=== PATIENT | female | born 1990 | race Caucasian/White ===

== ENCOUNTER 2016-06-15 18:03 | Emergency (ER) | payer OTHER, MEDICAID ==
[2016-06-15] MEDS ORDERED: IBUPROFEN 800 MG TABLET PO ONE (18:23)
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
[2016-06-15 20:32] VITALS: BP 137/79
== END 2016-06-15 20:31 | disposition home or self-care (01) ==
LOC: ER 18:03
DX: S16.1XXA Strain of muscle, fascia and tendon at neck level, initial encounter (principal); S39.012A Strain of muscle, fascia and tendon of lower back, initial encounter; V49.40XA Driver injured in collision with unspecified motor vehicles in traffic accident, initial encounter; F17.200 Nicotine dependence, unspecified, uncomplicated
CPT/HCPCS: 99283

== ENCOUNTER → 2017-08-17 | Outpatient (CLI) | payer SELFPAY ==
--- NOTE | 2017-08-17 14:43 | RADIOLOGY REPORT (SQ) ---
EXAM DESCRIPTION: U/S [id number] TRNABD 1GES W/ODOP COMPLETED DATE/TIME: 08/17/2017 2:24 pm REASON FOR STUDY: Z34.91 ENCNTR FOR SUPRVSN OF NORMAL PREG, UNSP, FIRST TRIMESTER Z34.91 ENCNTR FOR SUPRVSN OF NORMAL PREG, UNSP, FIRST TRIMES COMPARISON: None. TECHNIQUE: Transabdominal static and realtime grayscale images acquired of the pelvis. Additional se lected spectral and color Doppler images recorded. All images stored on PACs. bHCG: Not available LIMITATIONS: None. FINDINGS: FETUS: Living intrauterine . EGA: 7 weeks 6 days TWIN: 03/30/2018 FHR: 157 beats per minute. SUBCHORIONIC BLEED: No SIZE OF BLEED: Not applicable. UTERUS: No masses. No anomalies. CERVICAL LENGTH: 3.1 cm Closed. RIGHT ADNEXA: Normal ovary with normal vascular flow. No adnexal free fluid. No adnexal masses. LEFT ADNEXA: Left ovary was not visualized No adnexal free fluid. No adnexal masses. FREE FLUID: None. OTHER: No other significant finding. IMPRESSION: LIVING INTRAUTERINE . EGA 7 weeks 6 days Trimester of : First - 0 to 13 weeks. TECHNICAL DOCUMENTATION: JOB ID: [id number] [employer]- All Rights Reserved Reading location - IP/workstation name: [email or web address]
== END ==
LOC: RAD 13:43
PROVIDERS: ATTEND Nurse Practitioner Women's Health
DX: Z34.91 Encounter for supervision of normal pregnancy, unspecified, first trimester (principal)
CPT/HCPCS: 76801

== ENCOUNTER 2018-03-23 16:31 | Inpatient (IN) | payer MEDICAID ==
[2018-03-23] MEDS ORDERED: MEASLES,MUMPS&RUBELLA VACC/PF 0.5 ML VIAL SUBCUT PRN (16:38)
[2018-03-23] MEDS ORDERED: NA PHOS,M-B/NA PHOS,DI-BA (ADULT) 133 ML ENEMA PR PRN (16:38)
[2018-03-23] MEDS ORDERED: MAGNESIUM HYDROXIDE SUSP 30 ML UDCUP PO PRN (16:38)
[2018-03-23] MEDS ORDERED: PROMETHAZINE HCL 25 MG TABLET PO PRN (16:38)
[2018-03-23] MEDS ORDERED: DIPHENHYDRAMINE HCL 25 MG CAPSULE PO PRN (16:38)
[2018-03-23] MEDS ORDERED: PSEUDOEPHEDRINE HCL 30 MG TABLET PO PRN (16:38)
[2018-03-23] MEDS ORDERED: PROMETHAZINE HCL INJ 25 MG/1 ML VIAL IV PRN (16:38)
[2018-03-23] MEDS ORDERED: OXYTOCIN/NORMAL SALINE 20 UNIT/1,000 ML RTUINJ IV PRN (16:38)
[2018-03-23] MEDS ORDERED: ACETAMINOPHEN WITH CODEINE #3 TABLET PO PRN ×2 (16:38)
[2018-03-23] MEDS ORDERED: PROMETHAZINE HCL 25 MG SUPP.RECT PR PRN (16:38)
[2018-03-23] MEDS ORDERED: DIPH/PERTUSS(ACELL)/TETANUS VAC/PF 0.5 ML SYR (>=10YO) IM PRN (16:38)
[2018-03-23] MEDS ORDERED: BENZOCAINE/MENTHOL AEROSOL SPRAY 56 ML TOP PRN (16:38)
[2018-03-23] MEDS ORDERED: ZOLPIDEM TARTRATE 5 MG TABLET PO PRN (16:38)
[2018-03-23] MEDS ORDERED: DIBUCAINE 1% OINTMENT 28 GM TP PRN (16:38)
[2018-03-23] MEDS ORDERED: ACETAMINOPHEN 650 MG SUPP.RECT PR PRN (16:38)
[2018-03-23] MEDS ORDERED: GLYCERIN/WITCH HAZEL LEAF 1 EACH MED..PAD TP PRN (16:38)
[2018-03-23] MEDS ORDERED: OXYTOCIN 10 UNIT/ML VIAL ONE (16:42)
[2018-03-23] MEDS ORDERED: LIDOCAINE 1% INJ-PF (10 MG/ML) 30 ML SDV ONE (16:42)
[2018-03-23] MEDS ORDERED: MISOPROSTOL 0.2 MG TABLET ONE (16:42)
[2018-03-23] MEDS ORDERED: OXYTOCIN/NORMAL SALINE 20 UNIT/1,000 ML RTUINJ ONE (16:42)
--- NOTE | 2018-03-23 17:04 | Admission Physical ---
Datetime Report Generated by CPN: 03/23/2018 17:04 CURRENT ADMISSION Chief Complaint: Other Chief Complaint Other: precipitous delivery in car in route to hospital Indication for Induction: Not Applicable Admit Plan: Admit to Unit Admit Plan- Other: tobacco abuse hx PTD in 2015 on P17 this PHYSICAL EXAM General: Normal HEENT: Deferred Neurologic: Normal Thyroid: Deferred Heart: Normal Lungs: Normal Breast: Deferred Back: Deferred Abdomen: Normal Genitourinary Exam: Normal Extremities: Normal DTRs: Deferred Pelvic Type: Adequate Physical Exam Comments: cord clamped by EMS Vital Signs: Reviewed FETUS A Admit Comment: stable, being evaluated by [facility] staff INFORMED CONSENT Assignment: Mary Grider MD Signature: with User ID: [email or web address] : with User ID: [email or web address]
[2018-03-23 17:29] LABS: HEMATOCRIT 36.7 % (36.0-47.0); HEMOGLOBIN 12.3 g/dL (12.0-15.5); MEAN CORPUSCULAR HEMOGLOBIN 32.2 pg (27.0-33.4); MEAN CORPUSCULAR HGB CONC 33.6 g/dL (32.0-36.0); MEAN CORPUSCULAR VOLUME 96 fl (80-97); PLATELET COUNT 223 10^3/uL (150-450); RED BLOOD COUNT 3.83 10^6/uL (3.72-5.28); RED CELL DISTRIBUTION WIDTH 13.3 % (11.5-14.0)
--- NOTE | 2018-03-23 19:50 | Delivery Summary ---
Del Sum A-C Datetime Report Generated by CPN: 03/23/2018 19:50 DELIVERY PERSONNEL DELIVERY PERSONNEL: [id number] Labor and Delivery Nurse:: Betty Jimenez RNprofessional skateboarder Nurse:: Wendi Proctor RN MATERNAL INFORMATION Delivery Anesthesia: None Medications After Delivery: Pitocin Bolus-Please Comment; Pitocin Drip 20 Units/1000ml NSS Maternal Complications: Precipitous Labor (<3hrs); Other Complication Details: delivered enroute Provider Comments: Pt arrived by EMS, baby delivered in private vehicle in route to hospital. Cord clamped by EMS. Bleeding stable, pt and baby stable and doing well. I cut cord and collected cord blood, and delivered placenta via Vogel mechanism with trailing membranes. Membranes delivered with ring forceps, fundus firmed and bleeding stabilized. LABOR SUMMARY EDC: 03/30/2018 00:00 No. Babies in Womb: 1 Attempted: No Labor Anesthesia: None LABOR INFORMATION Reason for Induction: Not Applicable Onset of Labor: 03/23/2018 14:00 Oxytocin: N/A Group B Beta Strep: neg Steroids Given: None Reason Steroids Not Administered: Not Applicable MEMBRANES Membranes Rupture Method: Spontaneous STAGES OF LABOR Stage 3 hr: 1 Stage 3 min: 10 Total Time in Labor hr: 2 Total Time in Labor min: 49 VAGINAL DELIVERY Episiotomy: None Laceration #1: Periurethral Laceration Extension #1: First Degree Laceration Repair: No Laceration Repair Note: no repair needed Sponge Count Correct: N/A Sharps Count Correct: N/A CSECTION DELIVERY Primary Indication: N/A Secondary Indication: N/A CSection Incidence: N/A Labor: N/A Elective: N/A CSection Incision: N/A BABY A INFORMATION Infant Delivery Date/Time: 03/23/2018 15:39 Method of Delivery: Vaginal Born in Route : Yes : N/A Forceps: N/A Vacuum Extraction: N/A PRESENTATION/POSITION BABY A Presentation: Cephalic Cephalic Presentation: Vertex Breech Presentation: N/A PLACENTA INFORMATION BABY A Placenta Delivery Time : 03/23/2018 16:49 Placenta Method of Delivery: Spontaneous Placenta Status: Delivered SCORES BABY A Heart Rate 5 min: >100 bpm Resp Effort 5 min: Good Cry Reflex Irritability 5 min: Cough or Sneeze or Pulls Away Muscle Tone 5 min: Active Motion Color 5 min: Completely [place] Resuscitation Effort 5 min: Tactile Stimulation SCORE 5 MIN: 10 INFORMATION BABY A Gestational Age at Delivery: 39.0 Gestational Status: Full Term- 39- 40.6 Weeks Infant Outcome : Liveborn Infant Condition : Stable Infant Sex: Female IDENTIFICATION BABY A Verification Date/Time: 03/23/2018 17:35 ID Band Number: [id number] Mother's Name Verified: Yes RN Verifying : Anjelica JIMENEZ RN Additional Verifying Personnel: HANANE PROCTOR RN WEIGHT/LENGTH BABY A Birthweight (gm): 2940 Infant Weight (lb): 6 Infant Weight (oz): 8 Infant Length (in): 19.50 Infant Length (cm): 49.53 CORD INFORMATION BABY A No. Cord Vessels: 3 Cord Blood Taken: Yes-For Storage (Mom's Blood type +) ASSESSMENT BABY A Infant Complications: Other Infant Complications- Other: UNKNOWN- DELIVERED ENROUTE Physical Findings at Delivery: Within Normal Limits Respirations: Appears Normal Skin to Skin: Yes Office Assistant Receptionist/ALS Called : No Infant Care By: Dwayne CHEEMA RN UPON ARRIVAL. INITIAL CARE _ APGARS DONE BY EMS. Transferred To: Remains with Mother SIGNATURES Assignment: Mary Grider MD Signature: with User ID: [email or web address] : with User ID: [email or web address] : I was personally available for consultation and serving as supervising physician for the MLP.
[2018-03-23] MEDS: FAMOTIDINE 20 MG TABLET PO SCH (21:10)
[2018-03-23] MEDS: IBUPROFEN 800 MG TABLET PO SCH (21:11)
[2018-03-23 22:17] LABS: AMORPHOUS SEDIMENT,URINE TRACE /HPF; APPEARANCE,URINE CLEAR; BILIRUBIN,URINE NEGATIVE (NEGATIVE); COLOR,URINE YELLOW; GLUCOSE, URINE 50 mg/dL (NEGATIVE); KETONES,URINE NEGATIVE (NEGATIVE); LEUKOCYTE ESTERASE,URINE TRACE (NEGATIVE); NITRITE,URINE NEGATIVE (NEGATIVE); PROTEIN,URINE NEGATIVE (NEGATIVE); URINE SPECIFIC GRAVITY 1.009; UROBILINOGEN,URINE NEGATIVE mg/dL (<2.0)
[2018-03-23 22:25] LABS: URINE AMPHETAMINES SCREEN NEGATIVE; URINE BARBITURATES SCREEN NEGATIVE; URINE BENZODIAZEPINES SCREEN NEGATIVE; URINE COCAINE SCREEN NEGATIVE; URINE MARIJUANA (THC) SCREEN NEGATIVE; URINE METHADONE SCREEN NEGATIVE; URINE PHENCYCLIDINE SCREEN NEGATIVE
[2018-03-24] MEDS: IBUPROFEN 800 MG TABLET PO SCH ×3 (05:39→22:38)
[2018-03-24 07:31] LABS: HEMATOCRIT 34.4 % (36.0-47.0); HEMOGLOBIN 11.9 g/dL (12.0-15.5); MEAN CORPUSCULAR HGB CONC 34.7 g/dL (32.0-36.0); MEAN CORPUSCULAR VOLUME 95 fl (80-97); PLATELET COUNT 208 10^3/uL (150-450); RED BLOOD COUNT 3.62 10^6/uL (3.72-5.28); RED CELL DISTRIBUTION WIDTH 13.3 % (11.5-14.0); WHITE BLOOD COUNT 12.2 10^3/uL (4.0-10.5)
[2018-03-24] MEDS: FERROUS SULFATE 325 MG TABLET PO SCH ×3 (08:04→17:09)
[2018-03-24] MEDS: DOCUSATE SODIUM 100 MG CAPSULE PO SCH ×3 (08:04→17:08)
[2018-03-24] MEDS: SENNOSIDES/DOCUSATE 8.6-50 MG 1 EACH TABLET PO SCH (09:21)
[2018-03-24] MEDS: PRENATAL VITAMIN W DHA CAPSULE PO SCH (09:21)
[2018-03-24] MEDS: FAMOTIDINE 20 MG TABLET PO SCH ×2 (09:21→22:38)
--- NOTE | 2018-03-24 10:17 | PDOC PROGRESS REPORT ---
Subjective-OB Progress Note for:: 03/24/18 Subjective: 28yo G2 now P2 s/p ppd1. Pt. ambulating, voiding and without difficulty. Denies any concerns at this time Physical Exam (OB) Vital Signs: Temp Pulse Resp BP Pulse Ox 98.3 F 76 17 135/84 H 98 03/24/18 07:55 03/24/18 07:55 03/24/18 07:55 03/24/18 07:55 03/24/18 07:55 Intake & Output 03/23/18 03/24/18 03/25/18 06:59 06:59 06:59 Output Total 500 Balance -500 Weight 92 kg - General General Appearance: Appears well In distress: None - PIH/Pre-Eclampsia Clonus: Negative Headache: Absent Epigastric Pain: No Visual Changes: No - Episiotomy/Laceration Episiotomy/Laceration Note: not bleeding or edematous - Lochia Lochia Amount: Small 10-25 ml Lochia Color: Rubra/Red - Abdomen Description: Soft, Flat Hernia Present: No Fundal Description: Firm, Midline Fundal Height: u/u - u/2 - Respiratory Respiratory Status: No respiratory distress - Extremities Upper extremity: Normal inspection Lower extremities: Normal inspection - Neurological Cognition: Normal Orientation: AAOx4 - Psychological Associated symptoms: Normal affect, Normal mood Objective-Diagnostic Laboratory: 03/24/18 06:50 03/23/18 03/23/18 03/23/18 17:14 17:14 21:54 WBC 14.0 H RBC 3.83 Hgb 12.3 Hct 36.7 MCV 96 MCH 32.2 MCHC 33.6 RDW 13.3 Plt Count 223 Urine Color YELLOW Urine Appearance CLEAR Urine pH 6.0 Ur Specific [place] 1.009 Urine Protein NEGATIVE Urine Glucose (UA) 50 H Urine Ketones NEGATIVE Urine Blood LARGE H Urine Nitrite NEGATIVE Ur Leukocyte Esterase TRACE H Urine WBC (Auto) 112 Urine RBC (Auto) 125 Blood Type B POSITIVE Antibody Screen NEGATIVE 03/24/18 06:50 WBC 12.2 H RBC 3.62 L Hgb 11.9 L Hct 34.4 L MCV 95 MCH 33.0 MCHC 34.7 RDW 13.3 Plt Count 208 Urine Color Urine Appearance Urine pH Ur Specific [place] Urine Protein Urine Glucose (UA) Urine Ketones Urine Blood Urine Nitrite Ur Leukocyte Esterase Urine WBC (Auto) Urine RBC (Auto) Blood Type Antibody Screen Assessment and Plan(PN) - Assessment and Plan (1) Periurethral laceration, delivered, current hospitalization Is this a current diagnosis for this admission?: Yes Plan: Continue to monitor for s/s of infection (2) Vaginal delivery Is this a current diagnosis for this admission?: Yes Plan: Routine pp care (3) Precipitous delivery Is this a current diagnosis for this admission?: Yes Plan: Routine pp care - Time Spent with Patient Time with patient: Less than 15 minutes Medications reviewed and adjusted accordingly: Yes - Disposition Anticipated Discharge: Home Within: within 24 hours
[2018-03-25] MEDS: IBUPROFEN 800 MG TABLET PO SCH (06:00)
[2018-03-25 08:37] VITALS: BP 132/71
--- NOTE | 2018-03-25 10:38 | PDOC PROGRESS REPORT ---
Subjective-OB Progress Note for:: 03/25/18 Subjective: Doing well, ready to go home, scant bleeding Physical Exam (OB) Vital Signs: Temp Pulse Resp BP Pulse Ox 98.2 F 78 16 132/71 H 97 03/25/18 08:10 03/25/18 08:10 03/25/18 08:10 03/25/18 08:10 03/25/18 08:10 Intake & Output 03/24/18 03/25/18 03/26/18 06:59 06:59 06:59 Intake Total 850 Output Total 500 Balance -500 850 Weight 92 kg - PIH/Pre-Eclampsia Clonus: Negative Headache: Absent Epigastric Pain: No Visual Changes: No - Lochia Lochia Amount: Scant < 10 ml Lochia Color: Rubra/Red - Abdomen Description: Soft, Flat Hernia Present: No Fundal Description: Firm, Midline Fundal Height: u/u - u/2 Objective-Diagnostic Laboratory: 03/24/18 06:50 Assessment and Plan(PN) - Assessment and Plan (1) Periurethral laceration, delivered, current hospitalization Is this a current diagnosis for this admission?: Yes (2) Vaginal delivery Is this a current diagnosis for this admission?: Yes (3) Precipitous delivery Is this a current diagnosis for this admission?: Yes - Time Spent with Patient Time with patient: Less than 15 minutes Medications reviewed and adjusted accordingly: Yes - Disposition Anticipated Discharge: Home Within: within 24 hours
--- NOTE | 2018-03-25 10:40 | PDOC DISCHARGE SUMMARY ---
Final Diagnosis Discharge Date: 03/25/18 - Final Diagnosis (1) Periurethral laceration, delivered, current hospitalization Is this a current diagnosis for this admission?: Yes (2) Vaginal delivery Is this a current diagnosis for this admission?: Yes (3) Precipitous delivery Is this a current diagnosis for this admission?: Yes Discharge Data - Discharge Medication Home Medications: Vit/Iron Fum/Folic AC [ Tablet] 1 tab PO DAILY 07/29/15 Gestational Age: 39 Reason(s) for Admission: Onset of Labor Complication(s): Laceration-Periurethral Laceration-Degree: 1st - Diagnosis Test Laboratory: Temp Pulse Resp BP Pulse Ox 98.2 F 78 16 132/71 H 97 03/25/18 08:10 03/25/18 08:10 03/25/18 08:10 03/25/18 08:10 03/25/18 08:10 03/23/18 03/23/18 03/24/18 17:14 21:54 06:50 RBC 3.83 3.62 L Hgb 12.3 11.9 L Hct 36.7 34.4 L Urine Opiates Screen NEGATIVE - Discharge information/Instructions Discharge Activity: Activity As Tolerated, No Lifting Over 10 Pounds, No Lifting /Push/Pulling, Pelvic Rest Discharge Diet: As Tolerated, Regular Disposition: HOME, SELF-CARE Follow [facility] with: [facility] in: 4, Weeks
[2018-03-25] MEDS: DOCUSATE SODIUM 100 MG CAPSULE PO SCH (12:42)
[2018-03-25] MEDS: FAMOTIDINE 20 MG TABLET PO SCH (12:43)
[2018-03-25] MEDS: SENNOSIDES/DOCUSATE 8.6-50 MG 1 EACH TABLET PO SCH (12:43)
[2018-03-25] MEDS: PRENATAL VITAMIN W DHA CAPSULE PO SCH (12:43)
[2018-03-25] MEDS: FERROUS SULFATE 325 MG TABLET PO SCH (12:43)
== END 2018-03-25 13:57 | disposition home or self-care (01) | DRG 776 ==
LOC: LC 16:31 → LR 16:34 → 2S 19:42
PROVIDERS: ADMIT Student in an Organized Health Care Education/Training Program; ATTEND Student in an Organized Health Care Education/Training Program
DX: O70.0 First degree perineal laceration during delivery (principal); O62.3 Precipitate labor; O99.335 Smoking (tobacco) complicating the puerperium; F17.210 Nicotine dependence, cigarettes, uncomplicated; Z3A.39 39 weeks gestation of pregnancy
CPT/HCPCS: 36415; 80307; 81001; 85027; 86592; 86850; 86900; 86901; J2590; J3490